=== PATIENT | male | born 1990 | race Caucasian/White ===

== ENCOUNTER 2016-10-20 10:13 | Emergency (ER) | payer OTHER ==
[2016-10-20] MEDS ORDERED: HYDROCODONE/ACETAMINOPHEN 5/325MG TABLET ONE (10:58)
[2016-10-20] MEDS ORDERED: PREDNISONE 20 MG TABLET ONE (10:58)
== END 2016-10-20 11:18 | disposition home or self-care (01) ==
LOC: ED 10:13
DX: K02.9 Dental caries, unspecified (principal); F17.210 Nicotine dependence, cigarettes, uncomplicated
CPT/HCPCS: 99283 ×2; J7512; A9270